=== PATIENT | male | born 1950 | race Caucasian/White ===

== ENCOUNTER → 2020-06-27 | Outpatient (REF) | payer MEDICARE, BC ==
[~2020-06-27] MED LIST: ASPI81TA86 PO; CIPR500T3; FINA5TAB2 PO; FLOM0.4C39 PO; GLIM2TAB4 PO; LOSA50TA88 PO; METO1TAB32 PO; MULTCAP PO; NITR0.4S14; SIMV40TA20 PO
[2020-07-31 11:47] LABS: APPEARANCE, URINE HAZY (CLEAR); BACTERIA, URINE AUTO NEGATIVE (NEGATIVE); BILIRUBIN, URINE AUTO NEGATIVE (NEGATIVE); BLOOD, URINE BLOOD 3+ (NEGATIVE); COLOR, URINE YELLOW (YELLOW); GLUCOSE, URINE (UA) AUTO NEGATIVE (NEGATIVE); KETONE, URINE AUTO NEGATIVE (NEGATIVE); LEUKOCYTE ESTERASE, URINE AUTO 1+ (NEGATIVE); MUCUS, URINE SMALL (NEGATIVE); NITRITE, URINE AUTO NEGATIVE (NEGATIVE); PROTEIN, URINE AUTO 1+ mg/dL (NEGATIVE); RBC, URINE AUTO TNTC /HPF (0-3); SPECIFIC GRAVITY URINE AUTO 1.014 (1.002-1.035); SQUAMOUS EPITHELIAL CELL UR AU 0 /HPF (0-6); UROBILINOGEN, URINE AUTO 0.2 mg/dL (0.0-2.0); WBC, URINE AUTO 46 /HPF (0-3)
== END ==
LOC: M SMT 12:23
PROVIDERS: ATTEND Nurse Practitioner Family
DX: N40.1 Benign prostatic hyperplasia with lower urinary tract symptoms (principal); Z01.818 Encounter for other preprocedural examination

== ENCOUNTER 2020-07-04 10:36 | Day surgery (SDC) | payer MEDICARE ==
[~2020-07-04] VITALS: Ht 182.9 cm; Wt 127.5 kg
[~2020-07-04 10:36] MED LIST changes: -CIPR500T3; +LIDOCAINE 1% MDV 20ML VIAL SQ PRN; +LIDOCAINE 2% 100MG/5ML SDV (FOR ANES.) As Ordered ONE; +MIDAZOLAM INJ 2MG/2ML VIAL (J2250 PER 1MG) As Ordered ONE; -NITR0.4S14; +ROCURONIUM BROMIDE 50 MG/5 ML VIAL As Ordered ONE; +fentaNYL 250 MCG/5 ML INJECTION (J3010) As Ordered ONE; +propofoL 200 MG/20 ML VIAL As Ordered ONE
[2020-07-04] MEDS ORDERED: NITR0.4S14 (11:06)
[2020-07-04] MEDS ORDERED: CIPR500T3 (11:06)
[2020-07-04] MEDS ORDERED: ceFAZolin 2 GM/D5W 50 ML IV BAG (J0690 PER 500MG) As Ordered ONE (11:20)
[2020-07-04] MEDS ORDERED: diphenhydrAMINE 50MG/ML VIAL (J1200) As Ordered ONE (11:49)
[2020-07-04] MEDS ORDERED: ACETAMINOPHEN 1000MG 100ML IV BTL (OFIRMEV) (J0131 PER 10MG) As Ordered ONE (11:49)
[2020-07-04] MEDS ORDERED: KETOROLAC 60MG 2ML VIAL As Ordered ONE (11:49)
[2020-07-04] MEDS ORDERED: ONDANSETRON 4MG/2ML VIAL As Ordered ONE (11:49)
[2020-07-04] MEDS ORDERED: LR 1,000 ML IV ONE (12:00)
[2020-07-04] MEDS ORDERED: ceFAZolin SOD 2 GM in IV 1 EA IV ONE (12:00)
[2020-07-04] MEDS ORDERED: ePHEDrine SULFATE 25 MG/5 ML(5MG/ML) SYRINGE As Ordered ONE (12:13)
[2020-07-04] MEDS ORDERED: PHENYLephrine HCL 500 MCG/5 ML (100MCG/ML) SYRINGE (J2370) As Ordered ONE (12:13)
[2020-07-04] MEDS ORDERED: fentaNYL 100 MCG/2 ML INJECTION (J3010) As Ordered ONE ×3 (13:07→14:52)
[2020-07-04] MEDS ORDERED: HYDROmorphone HCL 2 MG/ML 1ML VIAL (J1170) As Ordered ONE (14:16)
[2020-07-04] MEDS ORDERED: FUROSEMIDE 100MG/10ML VIAL (J1940) As Ordered ONE (14:23)
[2020-07-04] MEDS ORDERED: METOCLOPRAMIDE INJ 10MG/2ML VIAL (J2765 PER 1) IV PRN (15:30)
[2020-07-04] MEDS ORDERED: MEPERIDINE INJ 25 MG/ML VIAL (J2175) IV PRN (15:30)
[2020-07-04] MEDS ORDERED: ONDANSETRON 4MG/2ML VIAL IV PRN (15:30)
[2020-07-04] MEDS ORDERED: oxyCODONE 5MG TAB PO PRN (15:30)
[2020-07-04] MEDS ORDERED: LR 1,000 ML IV SCH (15:30)
[2020-07-04] MEDS ORDERED: fentaNYL 100 MCG/2 ML INJECTION (J3010) IV PRN (15:30)
[2020-07-04] MEDS ORDERED: ACETAMINOPHEN TAB 650MG DOSE (2X325MG) PO PRN (16:31)
[2020-07-04 17:50] VITALS: BP 159/74
[2020-07-04] MEDS ORDERED: ONDANSETRON 4 MG ORAL DISINTEGRATING TAB As Ordered ONE (18:03)
[2020-07-04] MEDS ORDERED: ONDANSETRON 4 MG ORAL DISINTEGRATING TAB PO SCH (22:45)
--- NOTE | 2020-08-22 11:46 | RO ---
DATE OF OPERATION: 07/04/2020 PREOPERATIVE DIAGNOSIS: Benign prostatic hyperplasia with urinary retention. POSTOPERATIVE DIAGNOSIS: Benign prostatic hyperplasia with urinary retention. PROCEDURE: Cystoscopy, button transurethral electrovaporization of the prostate. SURGEON: Jozef Rosa MD QUALITY PROCESS ENGINEER: None. ANESTHESIA: General. OPERATIVE INDICATIONS: This is a 70-year-old male with benign prostatic hyperplasia with urinary retention brought to the operating room today for treatment. DESCRIPTION OF PROCEDURE: The patient was brought to the operating room and general anesthesia induced. Prophylactic antibiotics were infused. He was placed in the dorsal lithotomy position and prepped and draped in the usual sterile fashion. A resectoscope was inserted in the urethral meatus and advanced into the bladder using a visual obturator. Of note, the patient had trilobar benign prostatic hyperplasia. I made note of the location of the ureteral orifices as well as the verumontanum. At this point, I began vaporizing hyperplastic tissue first on the median lobe and then circumferentially at the bladder neck. After that, I started vaporizing hyperplastic tissue on both lateral lobes. I kept doing this until there was a clear channel established. Throughout the procedure, I made sure not to vaporize too close to the ureteral orifices or distal to the verumontanum. Once there was a clear channel established, hemostasis was obtained using coagulation current. Once satisfied with hemostasis, the resectoscope was removed. An [place] catheter was inserted into the bladder and the balloon was filled with 15 mm of sterile water. The catheter was connected to gravity drainage and this marked the conclusion of the procedure. The patient was taken out of the dorsal lithotomy position, awakened from anesthesia and transferred to the recovery room in stable condition. ESTIMATED BLOOD LOSS: 30 mL. COMPLICATIONS: None. SPECIMENS: None. PLAN: The patient will follow up in the urology clinic in one week for catheter removal and voiding trial. ANNMARIE
== END 2020-07-04 18:15 | disposition home or self-care (01) ==
LOC: M SDC 10:36
PROVIDERS: ATTEND Urology
DX: N40.1 Benign prostatic hyperplasia with lower urinary tract symptoms (principal); I10 Essential (primary) hypertension; E78.5 Hyperlipidemia, unspecified; K21.9 Gastro-esophageal reflux disease without esophagitis; Z95.1 Presence of aortocoronary bypass graft; Z79.82 Long term (current) use of aspirin; Z98.61 Coronary angioplasty status; I25.10 Atherosclerotic heart disease of native coronary artery without angina pectoris; E11.9 Type 2 diabetes mellitus without complications; G47.30 Sleep apnea, unspecified; Z79.899 Other long term (current) drug therapy
CPT/HCPCS: 52601; J0131; J0690; J1170; J1200; J1885; J1940; J2250; J2370; J2405; J2765; J3010; Q0162